=== PATIENT | male | born 1990 | race Hispanic/Latino ===

== ENCOUNTER 2018-01-21 22:40 | Emergency (ER) | payer SELFPAY ==
[2018-01-22] MEDS ORDERED: LIDOCAINE 1% MPF 5 ML VIAL ONE (00:31)
[2018-01-22] MEDS ORDERED: AMOX/K CLAV 875 MG TAB ONE (00:43)
[2018-01-22] MEDS ORDERED: HYDROCODONE/APAP 5/325 MG TAB ONE (00:43)
[2018-01-22] MEDS ORDERED: TETANUS & DIPHTHERIA TOX,ADULT 0.5 ML VIAL ONE (00:43)
--- NOTE | 2018-01-22 00:59 | EDPHYS ---
Physician Documentation [facility] Name: Raudel Augustin Age: 27 yrs Sex: Male : 1990 Arrival Date: 01/21/2018 Time: 22:45 Bed 8 Private MD: YUNIOR Physician Boyd Mccoy HPI: 01/22 00:00 This 27 yrs old Male presents to ER via Ambulatory with complaints of cp Laceration To Nose. 00:00 The patient has a laceration related to: nasal area struck by another players head cp occurred at a sports field or court, and there are no complicating factors. The laceration(s) is(are) located on the bridge of nose. Onset: The symptoms/episode began/occurred just prior to arrival. Associated signs and symptoms: Pertinent negatives: heavy bleeding, loss of consciousness, suspected foreign body. Historical: - Allergies: 01/21 23:03 No Known Allergies; fc - Home Meds: 23:03 None [Active]; fc - PMHx: 23:03 None; fc - PSHx: 23:03 None; fc - Immunization history:: Last tetanus immunization: unknown. - Social history:: Smoking status: Patient/guardian denies using tobacco. - Ebola Screening: : Patient negative for fever greater than or equal to 101.5 degrees Fahrenheit, and additional compatible Ebola Virus Disease symptoms Patient denies exposure to infectious person Patient denies travel to an Ebola-affected area in the 21 days before illness onset. ROS: 01/22 00:05 Constitutional: Negative for body aches, chills, fever, poor PO intake. cp 00:05 Eyes: Negative for injury, pain, redness, and discharge. cp 00:05 ENT: Negative for drainage from ear(s), ear pain, Teeth pain nasal discharge, difficulty swallowing, difficulty handling secretions. 00:05 Neck: Negative for pain with movement, pain at rest, stiffness, tenderness. 00:05 Respiratory: Negative for cough, shortness of breath, wheezing. 00:05 Abdomen/GI: Negative for abdominal pain, nausea, vomiting. 00:05 Skin: Positive for laceration(s), of the bridge of nose. 00:05 Neuro: Negative for altered mental status, headache, loss of consciousness, seizure activity, syncope, near syncope, weakness. 00:05 All other systems are negative. Exam: 00:12 Constitutional: The patient appears in no acute distress, alert, awake, non-toxic, well cp developed, well nourished. 00:12 Eyes: Pupils equal round and reactive to light, extra-ocular motions intact. Lids and cp lashes normal. Conjunctiva and sclera are non-icteric and not injected. Cornea within normal limits. Periorbital areas with no swelling, redness, or edema. 00:12 Head/face: Noted is a laceration(s), that is deep, of the bridge of nose, Sinus tenderness, is not appreciated. 00:12 ENT: External ear(s): are unremarkable, Ear canal(s): are normal, clear, TM's: dullness, bilaterally, Nose: Nasal septum: no septal hematoma appreciated, bleeding, is not appreciated, nasal drainage, is not appreciated, Mouth: Lips: moist, Oral mucosa: pink and intact, moist, Posterior pharynx: is normal, airway is patent, no erythema, no exudate, Dental exam: normal. 00:12 Neck: C-spine: vertebral tenderness, is not appreciated, crepitus, is not appreciated, ROM/movement: is normal, is supple, without pain, no range of motions limitations, no nuchal rigidity. 00:12 Chest/axilla: Inspection: normal, Palpation: is normal, no crepitus, no tenderness. 00:12 Cardiovascular: Rate: normal, Rhythm: regular. 00:12 Respiratory: the patient does not display signs of respiratory distress, Respirations: normal, no use of accessory muscles, no retractions, no splinting, no tachypnea, labored breathing, is not present, Breath sounds: are clear throughout, no decreased breath sounds, no stridor, no wheezing. 00:12 Abdomen/GI: Inspection: abdomen appears normal, Palpation: abdomen is soft and non-tender, in all quadrants. 00:12 Back: pain, is absent, ROM is normal. 00:12 Neuro: Orientation: to person, place \T\ time. Mentation: lucid, able to follow commands, Cerebellar function: is grossly normal, Motor: moves all fours, strength is normal, Sensation: no obvious gross deficits, Gait: is steady. Vital Signs: 01/21 23:03 BP 128 / 70; Pulse 87; Resp 20; Temp 97.7(O); Pulse Ox 99% on R/A; Weight 86.18 kg; fc Height 5 ft. 11 in. (180.34 cm); Pain 7/10; 01/22 01:00 BP 119 / 69; Pulse 85; Resp 14; Pulse Ox 98% ; bp 01/21 23:03 Body Mass Index 26.50 (86.18 kg, 180.34 cm) fc Laceration: 00:56 Wound Repair of 1.5cm ( 0.6in ) subcutaneous laceration to bridge of nose. Irregularly cp shaped.. Distal neuro/vascular/tendon intact. Anesthesia: Wound infiltrated with 2 mls of 1% lidocaine. Wound prep: Moderate cleansing by database technician, Wound irrigation by database technician. Skin closed with 3 6-0 Prolene using interrupted sutures and sterile technique. Dressed with Bacitracin, bandaid. Patient tolerated well. MDM: 01/21 23:49 Patient medically screened. cp 01/22 00:00 Differential diagnosis: superficial laceration, concussion, nasal fracture. cp 00:57 Data reviewed: vital signs, nurses notes, radiologic studies, plain films, and as a cp result, I will discharge patient. 00:57 Test interpretation: by ED physician or midlevel provider: plain radiologic studies. cp Counseling: I had a detailed discussion with the patient and/or guardian regarding: the historical points, exam findings, and any diagnostic results supporting the discharge/admit diagnosis, radiology results, the need for outpatient follow up, an ENT specialist, to return to the emergency department if symptoms worsen or persist or if there are any questions or concerns that arise at home. Response to treatment: the patient's symptoms have markedly improved after treatment, and as a result, I will discharge patient. 01/21 23:20 Order name: Nasal Bones XRAY rg2 01/21 23:54 Order name: Wound Care: please clean and irrigate wound; Complete Time: 00:35 cp 01/21 23:55 Order name: Dressing - Wound; Complete Time: 00:35 cp 01/21 23:55 Order name: Gloves, Sterile; Complete Time: 00:35 cp 01/21 23:55 Order name: Setup Suture Tray; Complete Time: 00:35 cp 01/22 00:55 Order name: Wound dressing; Complete Time: 01:13 cp Administered Medications: 00:25 Drug: HYDROcodone-acetaminophen 5 mg-325 mg 1 tabs Route: PO; bp 01:13 Follow up: Response: Pain is decreased bp 00:25 Drug: Tetanus-Diphtheria Toxoid Adult 0.5 ml {Safety Analyst: [employer]. Exp: bp 03/18/2020. Lot #: [id number]. } Route: IM; Site: right deltoid; 01:13 Follow up: Response: No adverse reaction bp 00:25 Drug: Augmentin 875 mg Route: PO; bp 01:13 Follow up: Response: No adverse reaction bp 00:35 Drug: Lidocaine (1 %) 5 ml {Note: by provider.} Volume: 20 ml; Route: Infiltration; bp Disposition: 06:56 Co-signature as Attending Physician, Boyd Mccoy MD I agree with the assessment and everardo plan of care. Disposition: 01/22/18 00:58 Discharged to Home. Impression: Fracture of nasal bones, Laceration without foreign body of nose. - Condition is Stable. - Discharge Instructions: Facial Laceration, Nasal Fracture. - Prescriptions for Augmentin 875- 125 mg Oral Tablet - take 1 tablet by ORAL route every 12 hours for 10 days; 20 tablet. Tylenol- Codeine #3 300-30 mg Oral Tablet - take 2 tablets by ORAL route every 6 hours As needed; 15 tablet. - Medication Reconciliation Form, Thank You Letter, Antibiotic Education, Prescription Opioid Use form. - Follow up: Cate Husain MD; When: 5 - 6 days; Reason: Wound Recheck, nasal bone fracture. - Problem is new. - Symptoms have improved. Signatures: Dispatcher [employer] Boyd Nunez MD MD cha Chretien, Felicia, RN RN Boyd Paula PA PA cp Peltier, Brian, RN RN bp Corrections: (The following items were deleted from the chart) 01:16 00:58 01/22/2018 00:58 Discharged to Home. Impression: Fracture of nasal bones; bp Laceration without foreign body of nose. Condition is Stable. Forms are Medication Reconciliation Form, Thank You Letter, Antibiotic Education, Prescription Opioid Use. Follow up: Cate Husain; When: 5 - 6 days; Reason: Wound Recheck, nasal bone fracture. Problem is new. Symptoms have improved. cp
--- NOTE | 2018-01-22 00:59 | ER ---
Nurse's Notes [facility] Name: Raduel Augustin Age: 27 yrs Sex: Male : 1990 Arrival Date: 01/21/2018 Time: 22:45 Bed 8 Private MD: Diagnosis: Fracture of nasal bones;Laceration without foreign body of nose Presentation: 01/21 23:01 Presenting complaint: Patient states: that he was playing soccer and that he got hit on fc the nose by someone else's head. Has laceration approx 1.5 cm to bridge of nose. Transition of care: patient was not received from another setting of care. Onset of symptoms was January 21, 2018 at 22:30. Risk Assessment: Do you want to hurt yourself or someone else? Patient reports no desire to harm self or others. Initial Sepsis Screen: Does the patient meet any 2 criteria? No. Patient's initial sepsis screen is negative. Does the patient have a suspected source of infection? No. Patient's initial sepsis screen is negative. Care prior to arrival: Bleeding of injury controlled. 23:01 Method Of Arrival: Ambulatory 23:01 Acuity: ALISON 4 fc Triage Assessment: 23:30 General: Appears in no apparent distress. uncomfortable, Behavior is calm, cooperative, bp appropriate for age. 23:30 Pain: Complains of pain in face. bp Historical: - Allergies: 23:03 No Known Allergies; fc - Home Meds: 23:03 None [Active]; fc - PMHx: 23:03 None; fc - PSHx: 23:03 None; fc - Immunization history:: Last tetanus immunization: unknown. - Social history:: Smoking status: Patient/guardian denies using tobacco. - Ebola Screening: : Patient negative for fever greater than or equal to 101.5 degrees Fahrenheit, and additional compatible Ebola Virus Disease symptoms Patient denies exposure to infectious person Patient denies travel to an Ebola-affected area in the 21 days before illness onset. Screenin:28 Abuse screen: Denies threats or abuse. Denies injuries from another. Nutritional bp screening: No deficits noted. Tuberculosis screening: No symptoms or risk factors identified. Fall Risk None identified. Assessment: 23:25 General: SEE TRIAGE NOTE. 27YO HM PRESENTS 1 HR S/P SPORTS INJURY. C/O TAKING A bp FOREHEAD TO THE NOSE DURING SOCCER. 2CM LAC NOTED TO NASAL BRIDGE WITH UNDERLYING HEMATOMA. PT DENIES LOC, GCS 15, RTS 12, BLEEDING CURRENTLY CONTROLLED. 01/22 01:10 Reassessment: PT D/C HOME AMBULATORY WITH FAMILY, DX WITH NASAL BONE FRACTURE. bp Vital Signs: 01/21 23:03 BP 128 / 70; Pulse 87; Resp 20; Temp 97.7(O); Pulse Ox 99% on R/A; Weight 86.18 kg; fc Height 5 ft. 11 in. (180.34 cm); Pain 7/10; 01/22 01:00 BP 119 / 69; Pulse 85; Resp 14; Pulse Ox 98% ; bp 01/21 23:03 Body Mass Index 26.50 (86.18 kg, 180.34 cm) fc ED Course: 01/21 22:45 Patient arrived in ED. ds1 23:02 Triage completed. fc 23:05 Arm band placed on Patient placed in an exam room, on a stretcher. fc 23:25 Kiko Musa, RN is Primary Nurse. bp 23:28 Patient has correct armband on for positive identification. Bed in low position. Call bp light in reach. Side rails up X2. Adult w/ patient. 23:38 Nasal Bones XRAY In Process Unspecified. EDMS 23:49 Boyd Sorto PA is PHCP. cp 23:49 Boyd Mccoy MD is Attending Physician. cp 01/22 00:30 Assist provider with laceration repair on head that was 2.5 cm. or less using sutures. bp Set up tray. Performed by Boyd PARSONS Dressed with Neosporin, Patient tolerated well. 00:57 Cate Husain MD is Referral Physician. cp 01:16 Patient did not have IV access during this emergency room visit. 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 Exp: bp 03/18/2020. Lot #: [id number]. } Route: IM; Site: right deltoid; 01:13 Follow up: Response: No adverse reaction bp 00:25 Drug: Augmentin 875 mg Route: PO; bp 01:13 Follow up: Response: No adverse reaction bp 00:35 Drug: Lidocaine (1 %) 5 ml {Note: by provider.} Volume: 20 ml; Route: Infiltration; bp Outcome: 00:58 Discharge ordered by . cp 01:15 Discharged to home ambulatory, with family. bp 01:15 Condition: stable 01:15 Discharge instructions given to patient, Instructed on discharge instructions, follow up and referral plans. medication usage, wound care, Demonstrated understanding of instructions, follow-up care, medications, wound care, Prescriptions given X 2. 01:16 Patient left the ED. bp Signatures: Dispatcher [employer] EDMS Emmy Wright, RN RN Leonela Almazan ds1 Boyd Sorto PA PA cp Peltier, Brian, RN RN bp
--- NOTE | 2018-01-22 09:07 | RAD REPORT ---
EXAM DESCRIPTION: RAD - Nasal Bones - 01/21/2018 11:41 pm CLINICAL HISTORY: TRAUMA COMPARISON: None FINDINGS: Mildly displaced and comminuted nasal bone fracture is seen.
== END 2018-01-22 01:16 | disposition home or self-care (01) ==
LOC: ER 22:40
PROC: 0HQ1XZZ Repair Face Skin, External Approach (ICD-10-PCS; principal; 2018-01-22)
DX: S02.2XXB Fracture of nasal bones, initial encounter for open fracture (principal); W50.0XXA Accidental hit or strike by another person, initial encounter; Y93.69 Activity, other involving other sports and athletics played as a team or group; Y92.39 Other specified sports and athletic area as the place of occurrence of the external cause; Z23 Encounter for immunization
CPT/HCPCS: 70160; 90714; 99284

== ENCOUNTER 2019-01-31 13:46 | Emergency (ER) | payer SELFPAY ==
[2019-01-31] MEDS ORDERED: KETOROLAC 30 MG/ML INJ ONE (14:48)
[2019-01-31 15:09] LABS: Barbiturates NEGATIVE (NEGATIVE); Benzodiazepines NEGATIVE (NEGATIVE); Cocaine NEGATIVE (NEGATIVE); METHAMPHETAM NEGATIVE (NEGATIVE); Methadone NEGATIVE (NEGATIVE); Opiates NEGATIVE (NEGATIVE); Phencyclidine NEGATIVE (NEGATIVE); THC Cannibis NEGATIVE (NEGATIVE)
--- NOTE | 2019-01-31 15:38 | RAD REPORT ---
EXAM DESCRIPTION: RAD - Chest Pa And Lat (2 Views) - 01/31/2019 2:57 pm CLINICAL HISTORY: Chest pain, shortness of breath COMPARISON: August 2015 TECHNIQUE: PA and lateral views of the chest were obtained. FINDINGS: The lungs are clear. Heart size is normal and central vasculature is within normal limit s. No pleural effusion or pneumothorax seen. No acute bony finding noted. No aortic abnormality. IMPRESSION: No acute cardiopulmonary process.
--- NOTE | 2019-01-31 15:43 | ER ---
Nurse's Notes [facility] Name: Raudel Augustin Age: 28 yrs Sex: Male : 1990 Arrival Date: 01/31/2019 Time: 13:51 Bed 24 Private MD: Diagnosis: Chest pain, unspecified Presentation: 01/31 14:00 Presenting complaint: Patient states: i have chest pain for 3 weeks now, it doesn't hj radiate, denies N/V; denies cough, reports SOB; pain is 7/10;. Transition of care: patient was not received from another setting of care. Onset of symptoms was January 31, 2019. Risk Assessment: Do you want to hurt yourself or someone else? Patient reports no desire to harm self or others. Initial Sepsis Screen: Does the patient meet any 2 criteria? No. Patient's initial sepsis screen is negative. Does the patient have a suspected source of infection? No. Patient's initial sepsis screen is negative. Care prior to arrival: None. 14:00 Method Of Arrival: Ambulatory 14:00 Acuity: ALISON 3 hj Historical: - Allergies: 14:02 No Known Allergies; hj - PMHx: 14:02 pericarditis; hj - PSHx: 14:02 None; hj - Immunization history:: Adult Immunizations up to date. - Social history:: Smoking status: unknown. - Ebola Screening: : No symptoms or risks identified at this time. Screenin:27 Abuse screen: Denies threats or abuse. Denies injuries from another. Nutritional rv screening: No deficits noted. Tuberculosis screening: No symptoms or risk factors identified. Fall Risk None identified. Assessment: 15:00 General: Appears in no apparent distress. comfortable, Behavior is calm, cooperative. rv Pain: Complains of pain in chest Pain does not radiate. Pain began suddenly. Neuro: Level of Consciousness is awake, alert, obeys commands, Oriented to person, place, time, situation. 15:00 Cardiovascular: Patient's skin is warm and dry. Respiratory: Airway is patent. GI: No rv signs and/or symptoms were reported involving the gastrointestinal system. : No signs and/or symptoms were reported regarding the genitourinary system. EENT: No signs and/or symptoms were reported regarding the EENT system. Derm: Skin is intact. Musculoskeletal: No signs and/or symptoms reported regarding the musculoskeletal system. Vital Signs: 14:02 BP 128 / 69; Pulse 55; Resp 18; Temp 98.4(O); Pulse Ox 99% on R/A; Weight 83.91 kg; hj Height 5 ft. 11 in. (180.34 cm); Pain 7/10; 15:33 BP 131 / 76; Pulse 52; Resp 15; Pulse Ox 100% ; rv 16:04 BP 123 / 66; Pulse 55; Resp 15; Temp 98; Pulse Ox 99% ; rv 14:02 Body Mass Index 25.80 (83.91 kg, 180.34 cm) ED Course: 13:51 Patient arrived in ED. mr 14:01 Triage completed. hj 14:02 Arm band placed on left wrist. hj 14:06 Barb Santoyo FNP-C is PHCP. snw 14:06 Donnie El MD is Attending Physician. snw 14:48 Yusuf Paniagua, MAIN is Primary Nurse. rv 14:54 Chest Pa And Lat (2 Views) XRAY: please include expiratory view In Process Unspecified. EDMS 15:27 Patient has correct armband on for positive identification. Placed in gown. Bed in low rv position. Call light in reach. Side rails up X 1. secured entrance monitor on. Pulse ox on. NIBP on. 15:27 Patient maintains SpO2 saturation greater than 95% on room air. rv 16:03 No provider procedures requiring assistance completed. Patient did not have IV access rv during this emergency room visit. Administered Medications: 15:00 Drug: TORadol 30 mg Route: IM; Site: right deltoid; rv 15:34 Follow up: Response: Pain is decreased rv Outcome: 15:43 Discharge ordered by . snw 16:03 Discharged to home ambulatory, with family. rv 16:03 Condition: good 16:03 Discharge instructions given to patient, Instructed on discharge instructions, follow up and referral plans. medication usage, Demonstrated understanding of instructions, follow-up care, medications, Prescriptions given X 1. 16:04 Patient left the ED. rv Signatures: Dispatcher [employer] EDWI Barb Santoyo FNP-C [employer] RUNNER-Abelardo Shannan Leigh Mayo Muir, RN RN Yusuf Paniagua, RN RN rv
--- NOTE | 2019-01-31 15:43 | EDPHYS ---
Physician Documentation [facility] Name: Raudel Augustin Age: 28 yrs Sex: Male : 1990 Arrival Date: 01/31/2019 Time: 13:51 Bed 24 Private MD: ED Physician Donnie El HPI: 01/31 14:42 This 28 yrs old Male presents to ER via Ambulatory with complaints of Chest snw Pain. 14:42 Onset: The symptoms/episode began/occurred gradually, 3 week(s) ago, and became snw persistent but intermittent. Associated signs and symptoms: The patient has no apparent associated signs or symptoms. Modifying factors: the patient symptoms are aggravated by nothing. The patient has experienced a previous episode. The patient has not recently seen a physician. pt states he went to an ER in the past and was dx with pericarditis, give colchicine. Historical: - Allergies: 14:02 No Known Allergies; hj - PMHx: 14:02 pericarditis; hj - PSHx: 14:02 None; hj - Immunization history:: Adult Immunizations up to date. - Social history:: Smoking status: unknown. - Ebola Screening: : No symptoms or risks identified at this time. ROS: 14:42 Constitutional: Negative for fever, chills, and weight loss, Eyes: Negative for injury, snw pain, redness, and discharge, ENT: Negative for injury, pain, and discharge, Neck: Negative for injury, pain, and swelling, Cardiovascular: Positive for chest pain intermittently x 2-3 weeks, Negative for palpitations, and edema, Respiratory: Negative for shortness of breath, cough, wheezing, and pleuritic chest pain, Abdomen/GI: Negative for abdominal pain, nausea, vomiting, diarrhea, and constipation, Back: Negative for injury and pain, : Negative for injury, bleeding, discharge, and swelling, MS/Extremity: Negative for injury and deformity, Skin: Negative for injury, rash, and discoloration, Neuro: Negative for headache, weakness, numbness, tingling, and seizure. Exam: 14:41 Constitutional: This is a well developed, well nourished patient who is awake, alert, snw and in no acute distress. Head/Face: Normocephalic, atraumatic. Eyes: Pupils equal round and reactive to light, extra-ocular motions intact. Lids and lashes normal. Conjunctiva and sclera are non-icteric and not injected. Cornea within normal limits. Periorbital areas with no swelling, redness, or edema. ENT: Nares patent. No nasal discharge, no septal abnormalities noted. Tympanic membranes are normal and external auditory canals are clear. Oropharynx with no redness, swelling, or masses, exudates, or evidence of obstruction, uvula midline. Mucous membranes moist. Neck: Trachea midline, no thyromegaly or masses palpated, and no cervical lymphadenopathy. Supple, full range of motion without nuchal rigidity, or vertebral point tenderness. No Meningismus. Chest/axilla: Normal chest wall appearance and motion. Nontender with no deformity. No lesions are appreciated. Respiratory: Lungs have equal breath sounds bilaterally, clear to auscultation and percussion. No rales, rhonchi or wheezes noted. No increased work of breathing, no retractions or nasal flaring. Abdomen/GI: Soft, non-tender, with normal bowel sounds. No distension or tympany. No guarding or rebound. No evidence of tenderness throughout. Back: No spinal tenderness. No costovertebral tenderness. Full range of motion. Skin: Warm, dry with normal turgor. Normal color with no rashes, no lesions, and no evidence of cellulitis. MS/ Extremity: Pulses equal, no cyanosis. Neurovascular intact. Full, normal range of motion. Neuro: Awake and alert, GCS 15, oriented to person, place, time, and situation. Cranial nerves II-XII grossly intact. Motor strength 5/5 in all extremities. Sensory grossly intact. Cerebellar exam normal. Normal gait. Psych: Awake, alert, with orientation to person, place and time. Behavior, mood, and affect are within normal limits. 14:41 Cardiovascular: Rate: bradycardic, Rhythm: regular, Pulses: no pulse deficits are appreciated, Heart sounds: normal, JVD: is not appreciated. 14:41 ECG was reviewed by the Attending Physician. Vital Signs: 14:02 BP 128 / 69; Pulse 55; Resp 18; Temp 98.4(O); Pulse Ox 99% on R/A; Weight 83.91 kg; hj Height 5 ft. 11 in. (180.34 cm); Pain 7/10; 15:33 BP 131 / 76; Pulse 52; Resp 15; Pulse Ox 100% ; rv 16:04 BP 123 / 66; Pulse 55; Resp 15; Temp 98; Pulse Ox 99% ; rv 14:02 Body Mass Index 25.80 (83.91 kg, 180.34 cm) hj MDM: 14:24 Patient medically screened. snw 15:43 Data reviewed: vital signs, nurses notes. Data interpreted: Pulse oximetry: on room air snw is 100 %. Interpretation: acceptable. Counseling: I had a detailed discussion with the patient and/or guardian regarding: the historical points, exam findings, and any diagnostic results supporting the discharge/admit diagnosis, lab results, radiology results, the need for outpatient follow up, to return to the emergency department if symptoms worsen or persist or if there are any questions or concerns that arise at home. Special discussion: Based on the patient's history, exam, and Dx evaluation, there is no indication for emergent intervention or inpatient Tx. It is understood by the patient/guardian that if the Sx's persist or worsen they need to return immediately for re-evaluation. Based on the history and exam findings, there is no indication for further emergent testing or inpatient evaluation. I discussed with the patient/guardian the need to see the astrobiologist for further evaluation of the symptoms. I discussed with the patient/guardian the need to see the primary care provider for further evaluation of the symptoms. 01/31 13:54 Order name: UDS; Complete Time: 15:10 snw 01/31 14:44 Order name: Chest Pa And Lat (2 Views) XRAY: please include expiratory view; Complete snw Time: 15:42 01/31 13:54 Order name: EKG; Complete Time: 13:55 snw 01/31 13:54 Order name: EKG - Nurse/Tech; Complete Time: 14:10 snw Administered Medications: 15:00 Drug: TORadol 30 mg Route: IM; Site: right deltoid; rv 15:34 Follow up: Response: Pain is decreased rv Disposition: 17:13 Co-signature as Attending Physician, Donnie El MD. rn Disposition: 01/31/19 15:43 Discharged to Home. Impression: Chest pain, unspecified. - Condition is Stable. - Discharge Instructions: Nonspecific Chest Pain, Chest Wall Pain, Gastroesophageal Reflux Disease, Adult. - Prescriptions for Protonix 40 mg Oral Tablet - take 1 tablet by ORAL route once daily; 30 tablet. - Medication Reconciliation Form, Thank You Letter, Antibiotic Education, Prescription Opioid Use form. - Follow up: Private Physician; When: 2 - 3 days; Reason: Recheck today's complaints, Continuance of care, Re-evaluation by your physician. Follow up: Emergency Department; When: As needed; Reason: Worsening of condition. Signatures: Dispatcher [employer] Barb Santoyo, [employer] Donnie El MD MD rn Joaquin, Henry, RN RN hj Vicente, Ronaldo, RN RN rv Corrections: (The following items were deleted from the chart) 16:04 15:43 01/31/2019 15:43 Discharged to Home. Impression: Chest pain, unspecified. rv Condition is Stable. Forms are Medication Reconciliation Form, Thank You Letter, Antibiotic Education, Prescription Opioid Use. Follow up: Private Physician; When: 2 - 3 days; Reason: Recheck today's complaints, Continuance of care, Re-evaluation by your physician. Follow up: Emergency Department; When: As needed; Reason: Worsening of condition. snw
--- NOTE | 2019-02-01 07:44 | EKG ---
Test Date: 2019-01-31 Test Time: 14:07:35 Slot Machine Key Person: CHRISTOPHER MEASUREMENT RESULTS: Intervals: Rate: 56 CA: 146 QRSD: 92 QT: 430 QTc: 414 [place]: P: 66 CA: 146 QRS: 96 T: 58 INTERPRETIVE STATEMENTS: Sinus bradycardia Rightward axis Borderline ECG No previous ECG available for comparison Electronically Signed On 02-01-19 07:42:49 CDT by Agustín Hutchison
== END 2019-01-31 16:04 | disposition home or self-care (01) ==
LOC: ER 13:46
DX: R07.9 Chest pain, unspecified (principal)
CPT/HCPCS: 71046; 80307; 93005; 96372; 99285